=== PATIENT | male | born 1965 | race Caucasian/White ===

== ENCOUNTER 2016-09-08 12:26 | Inpatient (IN) | payer OTHER ==
[2016-09-08 12:38] VITALS: BMI 24.8
--- NOTE | 2016-09-08 15:43 | HP ---
COWS - Scale Resting Pulse: 0= [place] 80 or Below Sweatin=Flushed/Facial Moisture Restless Observation: 3= Extraneous Movement Pupil Size: 2= Moderately Dilated Bone or Joint Aches: 2= Severe Diffuse Aches Runny Nose/ Eye Tearin= Runny Nose/Eyes GI Upset > 30mins: 3= Vomiting/Diarrhea Tremor Observation: 2= Slight Tremor Visible Yawning Observation: 2= >3x During Session Anxiety or Irritability: 2=Irritable/Anxious Goose Flesh Skin: 0=Smooth Skin COWS Score: 20 CIWA Score - CIWA Score Nausea/Vomitin Muscle Tremors: 3 Anxiety: 3 Agitation: 3 Paroxysmal Sweats: 2 Orientation: 0-Oriented Tacttile Disturbances: 1-Very Mild Itch/Numbness Auditory Disturbances: 1-Very Mild Visual Disturbances: 1-Very Mild Sensitivity Headache: 2-Mild CIWA-Ar Total Score: 19 Admission ROS BHS - HPI Chief Complaint: i am using heroin and drinking a lot,need help to stop Allergies/Adverse Reactions: Allergies Allergy/AdvReac Type Severity Reaction Status Date / Time egg Allergy Severe Swelling Verified 09/08/16 14:23 NKDA Allergy Uncoded 09/08/16 14:24 History of Present Illness: this 50 years old male with heroin and alcohol dependence,seeking helpt to stop, last time treatment 06/30 [facility] nicotine dependence anxiety depression ptsd longest of sobriety 7 years Exam Limitations: No Limitations - Ebola screening Have you traveled outside of the country in the last 21 days: No Have you had contact with anyone from an Ebola affected area: No Have you been sick,other than usual withdrawal symptoms: No Do you have a fever: No - Review of Systems Constitutional: Chills, Diaphoresis, Loss of Appetite, Malaise, Night Sweats, Changes in sleep, Weakness, Unintentional Wgt. Loss EENT: reports: Tearing, Nose Congestion Respiratory: reports: No Symptoms reported Cardiac: reports: No Symptoms Reported GI: reports: Diarrhea, Nausea, Abdominal cramping : reports: No Symptoms Reported Musculoskeletal: reports: Back Pain, Muscle Pain, Joint Stiffness Integumentary: reports: Dryness Neuro: reports: Headache, Tremors Endocrine: reports: No Symptoms Reported Hematology: reports: No Symptoms Reported Psychiatric: reports: Anxious (ptsd), Depressed Patient History - Patient Medical History Hx Anemia: No Hx Asthma: No Hx Chronic Obstructive Pulmonary Disease (COPD): No Hx Cancer: No Hx Cardiac Disorders: No Hx Hypertension: No Hx Hypercholesterolemia: No Hx Pacemaker: No HX Cerebrovascular Accident: No Hx Seizures: No Hx Dementia: No Hx Diabetes: No Hx Gastrointestinal Disorders: No Hx Liver Disease: No Hx Genitourinary Disorders: No Hx Sexually Transmitted Disorders: No Hx Renal Disease (ESRD): No Hx Thyroid Disease: No Hx Human Immunodeficiency Virus (HIV): No (last 2014 negative) Hx Hepatitis C: No Hx Depression: Yes (anxiety) Hx Suicide Attempt: No Hx Bipolar Disorder: No Hx Schizophrenia: No Other Medical History: ptsd,insomnia,no suicidal,no homicidal - Patient Surgical History Past Surgical History: Yes Hx Neurologic Surgery: No Hx Cataract Extraction: No Hx Cardiac Surgery: No Hx Lung Surgery: No Hx Breast Surgery: No Hx Breast Biopsy: No Hx Abdominal Surgery: Yes (colon ca in 2012) Hx Appendectomy: No Hx Cholecystectomy: No Hx Genitourinary Surgery: No Hx Section: No Hx Orthopedic Surgery: Yes (fx, right arm in 1995) Anesthesia Reaction: No - PPD History Previous Implant?: Yes Documented Results: Negative w/o proof Implanted On Prior R Admission?: No PPD to be Administered?: Yes - Smoking Cessation Smoking history: Current every day smoker Have you smoked in the past 12 months: Yes Aproximately how many cigarettes per day: 4 Hx Chewing Tobacco Use: No Initiated information on smoking cessation: Yes 'Breaking Loose' booklet given: 09/09/16 - Substance & Tx. History Hx Alcohol Use: Yes Hx Substance Use: Yes Substance Use Type: Alcohol, Heroin Hx Substance Use Treatment: Yes ([facility] 2 months ago in [facility]/30) - Substances Abused Heroin Route: Inhalation Frequency: Daily Amount used: 2 bags Age of first use: 50 Date of Last Use: 09/07/16 Alcohol-vodka Route: Oral Frequency: Daily Amount used: 2 pts. Age of first use: 18 Date of Last Use: 09/08/16 Family Disease History - Family Disease History Family History: Denies Admission Physical Exam BHS - Vital Signs Vital Signs: Vital Signs - 24 hr 09/08/16 12:36 Temperature 97 F L Pulse Rate 79 Respiratory 20 Rate Blood Pressure 148/69 - Physical General Appearance: Yes: Moderate Distress, Tremorous, Irritable, Sweating, Anxious HEENTM: Yes: Normal ENT Inspection, JADE, Pharynx Normal Respiratory: Yes: Lungs Clear, Normal Breath Sounds, No Respiratory Distress Neck: Yes: Within Normal Limits Breast: Yes: Within Normal Limits Cardiology: Yes: Within Normal Limits, Regular Rhythm, Regular Rate, S1, S2 Abdominal: Yes: Within Normal Limits, Normal Bowel Sounds, Non Tender, Flat, Soft, Surgical Scar Genitourinary: Yes: Within Normal Limits Back: Yes: Muscle Spasm Musculoskeletal: Yes: full range of Motion, Back pain, Joint Stiffness, Muscle Pain Extremities: Yes: Tremors Neurological: Yes: network systems operator II-XII NML intact, Fully Oriented, Alert, Motor Strength 5/5 Integumentary: Yes: Dry Lymphatic: Yes: Within Normal Limits - Diagnostic (1) Opioid dependence with withdrawal Current Visit: Yes Status: Acute (2) Nicotine dependence Current Visit: Yes Status: Acute (3) Anxiety and depression Current Visit: Yes Status: Acute (4) PTSD (post-traumatic stress disorder) Current Visit: Yes Status: Acute (5) Weight loss Current Visit: Yes Status: Acute (6) Alcohol dependence with uncomplicated withdrawal Current Visit: Yes Status: Acute Cleared for Admission [facility] - Detox or Rehab [facility] Level of Care: Medically Managed Detox Regimen/Protocol: Methadone/Librium [facility] Breath Alcohol Content Breath Alcohol Content: 0 Urine Drug Screen - Results Drug Screen Negative: No Urine Drug Screen Results: SILVANA-Cocaine, OPI-Opiates
[2016-09-08] MEDS ORDERED: chlordiazePOXIDE HCL 25 MG CAPSULE PO PRN (15:56)
[2016-09-08] MEDS ORDERED: MAG HYDROX/AL HYDROX/SIMETH 30 ML UNIT-DOSE CUP PO PRN (15:57)
[2016-09-08] MEDS ORDERED: IBUPROFEN 400 MG TABLET (FP) PO PRN (15:57)
[2016-09-08] MEDS ORDERED: guaiFENesin/D-METHORPHAN HB 10 ML UNIT-DOSE CUPS PO PRN (15:57)
[2016-09-08] MEDS ORDERED: MAGNESIUM CITRATE 300 ML BOTTLE PO PRN (15:57)
[2016-09-08] MEDS ORDERED: ACETAMINOPHEN 325 MG TABLET (FP) PO PRN (15:57)
[2016-09-08] MEDS ORDERED: MENTHOL/PHENOL 1 EACH UD MM PRN (15:57)
[2016-09-08] MEDS ORDERED: MAGNESIUM HYDROX 2400MG/30ML ORAL SUSPENSION 30 ML CUP PO PRN (15:57)
[2016-09-08] MEDS ORDERED: hydrOXYzine PAMOATE 25 MG CAPSULE (FP) PO PRN (15:57)
[2016-09-08] MEDS ORDERED: P-EPHED 60MG/TRIPROLIDI 2.5MG TABLET PO PRN (15:57)
[2016-09-08] MEDS ORDERED: METHADONE HCL 10 MG TABLET (FOR DETOX USE ONLY) PO ONE ×2 (17:30→23:00)
[2016-09-08] MEDS: chlordiazePOXIDE HCL 25 MG CAPSULE PO SCH ×2 (18:18→22:07)
[2016-09-08] MEDS: NICOTINE 21 MG/24 HOURS TOPICAL PATCH TD SCH (18:23)
[2016-09-08 19:32] LABS: URINE APPEARANCE CLEAR; URINE BILIRUBIN NEGATIVE (NEGATIVE); URINE BLOOD NEGATIVE (NEGATIVE); URINE COLOR YELLOW; URINE GLUCOSE (UA) NEGATIVE (NEGATIVE); URINE KETONE 1+ (NEGATIVE); URINE LEUK ESTERASE NEGATIVE (NEGATIVE); URINE NITRITE NEGATIVE (NEGATIVE)
[2016-09-08 21:26] LABS: URINE PROTEIN 1+ (NEGATIVE)
[2016-09-08 21:36] LABS: URINE MUCUS MODERATE; URINE RBC <1 /hpf (0-3); URINE WBC 1 /hpf (3-5)
[2016-09-08] MEDS: cloNIDine HCL 0.1 MG TABLET PO SCH (22:07)
[2016-09-08] MEDS: THIAMINE HCL 100 MG TABLET (FP) PO SCH (22:07)
[2016-09-09] MEDS: chlordiazePOXIDE HCL 25 MG CAPSULE PO SCH ×4 (05:53→22:22)
--- NOTE | 2016-09-09 09:09 | CONSULT ---
[facility] Psychiatric Consult - Data Date of interview: 09/09/16 Admission source: [facility] Identifying data: This is 50 years old male with no psychiatric hospitalization history iontoxicated with: Alcohol, Heroin and Nicotine Substance Abuse History: - Smoking Cessation. Smoking history: Current every day smoker. Have you smoked in the past 12 months: Yes. Aproximately how many cigarettes per day: 4. Hx Chewing Tobacco Use: No. Initiated information on smoking cessation: Yes. - Substance & Tx. History. Hx Alcohol Use: Yes. Hx Substance Use: Yes. Substance Use Type: Alcohol, Heroin. Hx Substance Use Treatment: Yes ([facility] 2 [facility]30). - Substances Abused. Heroin. Route: Inhalation. Frequency: Daily. Amount used: 2 bags. Age of first use: 50. Date of Last Use: 09/07/16. Alcohol-vodka. Route: Oral. Frequency: Daily. Amount used: 2 pts. Age of first use: 18. Date of Last Use : 09/08/16 Medical History: Weight loss history Psychiatric History: Patient reports no psychiatric history, as per compiuter there is a history of PTSD and Anxiety and Depression. Reports no medications taking priuor to admission, denies suicidal hirtory Physical/Sexual Abuse/Trauma History: Denies Additional Comment: Observation. Detox Unit Care Protocol Mental Status Exam - Mental Status Exam Alert and Oriented to: Person Cognitive Function: Fair Patient Appearance: Unkempt Mood: Sad Affect: Flat Patient Behavior: Sedated Speech Pattern: Delayed Thought Process: Circumstantial Thought Disorder: Being Controlled Hallucinations: Denies Suicidal Ideation: Denies Homicidal Ideation: Denies Insight/Judgement: Fair Sleep: Difficulty falling asleep Appetite: Weight loss Muscle strength/Tone: Mild Hypotonicity Gait/Station: Shuffling Additional Comments: Observation. Detox Unit Care Protocol Psychiatric Findings - Problem List ([place] 1, 2,3) (1) Anxiety and depression Current Visit: Yes Status: Acute (2) Nicotine dependence Current Visit: Yes Status: Acute (3) Opioid dependence with withdrawal Current Visit: Yes Status: Acute (4) PTSD (post-traumatic stress disorder) Current Visit: Yes Status: Acute (5) Drug-induced mood disorder Current Visit: Yes Status: Acute - Initial Treatment Plan Initial Treatment Plan: Observation. Detox Unit Care Protocol
[2016-09-09] MEDS ORDERED: METHADONE HCL 10 MG TABLET (FOR DETOX USE ONLY) PO SCH (10:00)
[2016-09-09] MEDS: PRENATAL VITAMINS W/ FOLIC ACID TABLET (FP) PO SCH (10:04)
[2016-09-09] MEDS: CYCLOBENZAPRINE HCL 10 MG TABLET (FP) PO PRN ×2 (10:05→22:22)
[2016-09-09] MEDS: cloNIDine HCL 0.1 MG TABLET PO SCH ×2 (10:05→22:22)
[2016-09-09] MEDS: NICOTINE 21 MG/24 HOURS TOPICAL PATCH TD SCH (10:05)
[2016-09-09 10:26] LABS: ALBUMIN 3.4 g/dl (3.4-5.0); ANION GAP 9 (8-16); CALCIUM 9.6 mg/dL (8.5-10.1); CO2 33 mmol/L (21-32); CREATININE 0.9 mg/dL (0.7-1.3); GLUCOSE,RANDOM 156 mg/dL (74-106); SGOT/AST 57 U/L (15-37); SGPT/ALT 59 U/L (12-78)
[2016-09-09 10:27] LABS: ALK PHOS 141 U/L (45-117); TOT PROT 6.7 g/dl (6.4-8.2)
[2016-09-09 10:47] LABS: MCH 32.6 pg (25.7-33.7); MCHC 33.9 g/dl (32.0-35.9); MEAN CELL VOLUME 96.2 fl (80-96); MEAN PLT VOLUME 8.9 fl (7.5-11.1); PLATELET COUNT 275 K/MM3 (134-434); RDW 14.7 % (11.9-15.9); WHITE BLOOD COUNT 9.9 K/mm3 (4.0-10.0)
--- NOTE | 2016-09-09 11:59 | EKG ---
Test Reason : Blood Pressure : / mmHG Vent. Rate : 051 BPM Atrial Rate : 051 BPM P-R Int : 128 ms QRS Dur : 100 ms QT Int : 492 ms P-R-T Axes : 033 022 037 degrees QTc Int : 453 ms SINUS BRADYCARDIA OTHERWISE NORMAL ECG NO PREVIOUS ECGS AVAILABLE Confirmed by MILTON CLEARY MD ([id number]) on 09/09/2016 11:58:59 AM Referred By: Confirmed By:MILTON CLEARY MD
--- NOTE | 2016-09-09 13:04 | PN ---
[facility] CIWA - CIWA Score Nausea/Vomitin Muscle Tremors: 3 Anxiety: 3 Agitation: 2 Paroxysmal Sweats: 1-Minimal Palms Moist Orientation: 0-Oriented Tacttile Disturbances: 1-Very Mild Itch/Numbness Auditory Disturbances: 1-Very Mild Visual Disturbances: 1-Very Mild Sensitivity Headache: 2-Mild CIWA-Ar Total Score: 17 BHS COWS - Scale Resting Pulse: 0= [place] 80 or Below Sweatin= Chills/Flushing Restless Observation: 3= Extraneous Movement Pupil Size: 1= Pupils >than Normal Bone or Joint Aches: 2= Severe Diffuse Aches Runny Nose/ Eye Tearin= Runny Nose/Eyes GI Upset > 30mins: 2= Nausea/Diarrhea Tremor Observation of Outstretched Hands: 2= Slight Tremor Visible Yawning Observation: 2= >3x During Session Anxiety or Irritability: 2=Irritable/Anxious Goose Flesh Skin: 0=Smooth Skin COWS Score: 17 [facility] Progress Note (SOAP) Subjective: ALERT,IRRITABLE,ANXIOUS,INTERRUPTED SLEEP,PAIN IN THE BODY AND BACK Objective: 09/09/16 13:01 Vital Signs Temperature 97.0 F L 09/09/16 10:00 Pulse Rate 64 09/09/16 10:00 Respiratory Rate 18 09/09/16 10:00 Blood Pressure 124/77 09/09/16 10:00 O2 Sat by Pulse Oximetry (%) EKG SINUS BRADYCARDIA 51 NO CHEST PAIN,NO SOB,NO DIZZINESS Laboratory Last Values WBC 9.9 K/mm3 (4.0-10.0) 09/09/16 06:30 RBC 4.25 M/mm3 (4.00-5.60) 09/09/16 06:30 Hgb 13.9 GM/dL (11.7-16.9) 09/09/16 06:30 Hct 40.9 % (35.4-49) 09/09/16 06:30 MCV 96.2 fl (80-96) H 09/09/16 06:30 MCH 32.6 pg (25.7-33.7) 09/09/16 06:30 MCHC 33.9 g/dl (32.0-35.9) 09/09/16 06:30 RDW 14.7 % (11.9-15.9) 09/09/16 06:30 Plt Count 275 K/MM3 (134-434) 09/09/16 06:30 MPV 8.9 fl (7.5-11.1) 09/09/16 06:30 Sodium 140 mmol/L (136-145) 09/09/16 06:30 Potassium 3.7 mmol/L (3.5-5.1) 09/09/16 06:30 Chloride 98 mmol/L (98-107) 09/09/16 06:30 Carbon Dioxide 33 mmol/L (21-32) H 09/09/16 06:30 Anion Gap 9 (8-16) 09/09/16 06:30 BUN 9 mg/dL (7-18) 09/09/16 06:30 Creatinine 0.9 mg/dL (0.7-1.3) 09/09/16 06:30 Creat Clearance w eGFR > 60 (>60) 09/09/16 06:30 Random Glucose 156 mg/dL (74-106) H 09/09/16 06:30 Calcium 9.6 mg/dL (8.5-10.1) 09/09/16 06:30 Total Bilirubin 1.0 mg/dL (0.2-1.0) 09/09/16 06:30 AST 57 U/L (15-37) H 09/09/16 06:30 ALT 59 U/L (12-78) 09/09/16 06:30 Alkaline Phosphatase 141 U/L (45-117) H 09/09/16 06:30 Total Protein 6.7 g/dl (6.4-8.2) 09/09/16 06:30 Albumin 3.4 g/dl (3.4-5.0) 09/09/16 06:30 Urine Color Yellow 09/08/16 18:00 Urine Appearance Clear 09/08/16 18:00 Urine pH 7.0 (5.0-8.0) 09/08/16 18:00 Ur Specific [place] 1.020 (1.005-1.025) 09/08/16 18:00 Urine Protein 1+ (NEGATIVE) H 09/08/16 18:00 Urine Glucose (UA) Negative (NEGATIVE) 09/08/16 18:00 Urine Ketones 1+ (NEGATIVE) H 09/08/16 18:00 Urine Blood Negative (NEGATIVE) 09/08/16 18:00 Urine Nitrite Negative (NEGATIVE) 09/08/16 18:00 Urine Bilirubin Negative (NEGATIVE) 09/08/16 18:00 Urine Urobilinogen 2.0 mg/dL (0.2-1.0) 09/08/16 18:00 Ur Leukocyte Esterase Negative (NEGATIVE) 09/08/16 18:00 Urine RBC <1 /hpf (0-3) 09/08/16 18:00 Urine WBC 1 /hpf (3-5) 09/08/16 18:00 Urine Mucus Moderate 09/08/16 18:00 RPR Titer Nonreactive (NONREACTIVE) 09/09/16 06:30 09/09/16 13:03 Assessment: 09/09/16 13:02 WITHDRAWAL SYMPTOM 09/09/16 13:03 Plan: CONTINUE DETOX,FASTING GLUCOSE IN AM
[2016-09-09] MEDS: THIAMINE HCL 100 MG TABLET (FP) PO SCH (22:23)
[2016-09-10] MEDS: chlordiazePOXIDE HCL 25 MG CAPSULE PO SCH ×2 (05:36→10:50)
[2016-09-10] MEDS: METHADONE HCL 5 MG TABLET (FOR DETOX USE ONLY) PO SCH (10:50)
[2016-09-10] MEDS: cloNIDine HCL 0.1 MG TABLET PO SCH ×2 (10:51→22:05)
[2016-09-10] MEDS: NICOTINE 21 MG/24 HOURS TOPICAL PATCH TD SCH (10:51)
[2016-09-10] MEDS: PRENATAL VITAMINS W/ FOLIC ACID TABLET (FP) PO SCH (10:51)
--- NOTE | 2016-09-10 11:32 | PN ---
S COWS - Scale Resting Pulse: 1= [place] 81-100 Sweatin= Chills/Flushing Restless Observation: 3= Extraneous Movement Pupil Size: 1= Pupils >than Normal Bone or Joint Aches: 2= Severe Diffuse Aches Runny Nose/ Eye Tearin= Runny Nose/Eyes GI Upset > 30mins: 2= Nausea/Diarrhea Tremor Observation of Outstretched Hands: 2= Slight Tremor Visible Yawning Observation: 1= 1-2x During Session Anxiety or Irritability: 2=Irritable/Anxious Goose Flesh Skin: 0=Smooth Skin COWS Score: 17 S Progress Note (SOAP) Subjective: ALERT,IRRITABLE,ANXIOUS,INTERRUPTED SLEEP,PAIN IN THE BODY AND BACK,TREMOR Objective: 09/10/16 11:31 Vital Signs Temperature 97.2 F L 09/10/16 10:00 Pulse Rate 97 H 09/10/16 10:00 Respiratory Rate 18 09/10/16 10:00 Blood Pressure 112/68 09/10/16 10:00 O2 Sat by Pulse Oximetry (%) Laboratory Last Values WBC 9.9 K/mm3 (4.0-10.0) 09/09/16 06:30 RBC 4.25 M/mm3 (4.00-5.60) 09/09/16 06:30 Hgb 13.9 GM/dL (11.7-16.9) 09/09/16 06:30 Hct 40.9 % (35.4-49) 09/09/16 06:30 MCV 96.2 fl (80-96) H 09/09/16 06:30 MCH 32.6 pg (25.7-33.7) 09/09/16 06:30 MCHC 33.9 g/dl (32.0-35.9) 09/09/16 06:30 RDW 14.7 % (11.9-15.9) 09/09/16 06:30 Plt Count 275 K/MM3 (134-434) 09/09/16 06:30 MPV 8.9 fl (7.5-11.1) 09/09/16 06:30 Sodium 140 mmol/L (136-145) 09/09/16 06:30 Potassium 3.7 mmol/L (3.5-5.1) 09/09/16 06:30 Chloride 98 mmol/L (98-107) 09/09/16 06:30 Carbon Dioxide 33 mmol/L (21-32) H 09/09/16 06:30 Anion Gap 9 (8-16) 09/09/16 06:30 BUN 9 mg/dL (7-18) 09/09/16 06:30 Creatinine 0.9 mg/dL (0.7-1.3) 09/09/16 06:30 Creat Clearance w eGFR > 60 (>60) 09/09/16 06:30 Random Glucose 156 mg/dL (74-106) H 09/09/16 06:30 Calcium 9.6 mg/dL (8.5-10.1) 09/09/16 06:30 Total Bilirubin 1.0 mg/dL (0.2-1.0) 09/09/16 06:30 AST 57 U/L (15-37) H 09/09/16 06:30 ALT 59 U/L (12-78) 09/09/16 06:30 Alkaline Phosphatase 141 U/L (45-117) H 09/09/16 06:30 Total Protein 6.7 g/dl (6.4-8.2) 09/09/16 06:30 Albumin 3.4 g/dl (3.4-5.0) 09/09/16 06:30 Urine Color Yellow 09/08/16 18:00 Urine Appearance Clear 09/08/16 18:00 Urine pH 7.0 (5.0-8.0) 09/08/16 18:00 Ur Specific [place] 1.020 (1.005-1.025) 09/08/16 18:00 Urine Protein 1+ (NEGATIVE) H 09/08/16 18:00 Urine Glucose (UA) Negative (NEGATIVE) 09/08/16 18:00 Urine Ketones 1+ (NEGATIVE) H 09/08/16 18:00 Urine Blood Negative (NEGATIVE) 09/08/16 18:00 Urine Nitrite Negative (NEGATIVE) 09/08/16 18:00 Urine Bilirubin Negative (NEGATIVE) 09/08/16 18:00 Urine Urobilinogen 2.0 mg/dL (0.2-1.0) 09/08/16 18:00 Ur Leukocyte Esterase Negative (NEGATIVE) 09/08/16 18:00 Urine RBC <1 /hpf (0-3) 09/08/16 18:00 Urine WBC 1 /hpf (3-5) 09/08/16 18:00 Urine Mucus Moderate 09/08/16 18:00 RPR Titer Nonreactive (NONREACTIVE) 09/09/16 06:30 Assessment: 09/10/16 11:32 WITHDRAWAL SYMPTOM Plan: CONTINUE DETOX
[2016-09-10] MEDS ORDERED: TRIMETHOBENZAMIDE HCL 200MG/2ML INJ IM PRN (16:42)
[2016-09-10] MEDS: chlordiazePOXIDE 5 MG CAPSULE PO SCH ×2 (18:38→22:05)
[2016-09-10] MEDS: LOPERAMIDE HCL 2 MG CAPSULE PO PRN (19:52)
[2016-09-10] MEDS: diphenhydrAMINE HCL 50 MG CAPSULE PO PRN (22:05)
[2016-09-10] MEDS: THIAMINE HCL 100 MG TABLET (FP) PO SCH (22:05)
[2016-09-11] MEDS: LOPERAMIDE HCL 2 MG CAPSULE PO PRN ×3 (05:10→23:36)
[2016-09-11] MEDS: chlordiazePOXIDE 5 MG CAPSULE PO SCH ×2 (06:48→10:45)
[2016-09-11] MEDS: PRENATAL VITAMINS W/ FOLIC ACID TABLET (FP) PO SCH (10:45)
[2016-09-11] MEDS: cloNIDine HCL 0.1 MG TABLET PO SCH ×2 (10:45→22:32)
[2016-09-11] MEDS: METHADONE HCL 5 MG TABLET (FOR DETOX USE ONLY) PO SCH (10:46)
[2016-09-11] MEDS ORDERED: DIPHENOXYLATE 2.5/ATROPINE.025 1 COMBO TABLET PO ONE (14:14)
--- NOTE | 2016-09-11 14:18 | PN ---
BHS Progress Note (SOAP) Subjective: Pt. c/o constant diarrhea,sweating,interrupted sleep,restless Objective: 09/11/16 14:17 Vital Signs - 8 hr 09/11/16 09/11/16 09:48 14:12 Temperature 97.9 F 97.2 F L Pulse Rate 68 70 Respiratory 18 18 Rate Blood Pressure 108/67 112/66 Laboratory Last Values WBC 9.9 K/mm3 (4.0-10.0) 09/09/16 06:30 RBC 4.25 M/mm3 (4.00-5.60) 09/09/16 06:30 Hgb 13.9 GM/dL (11.7-16.9) 09/09/16 06:30 Hct 40.9 % (35.4-49) 09/09/16 06:30 MCV 96.2 fl (80-96) H 09/09/16 06:30 MCH 32.6 pg (25.7-33.7) 09/09/16 06:30 MCHC 33.9 g/dl (32.0-35.9) 09/09/16 06:30 RDW 14.7 % (11.9-15.9) 09/09/16 06:30 Plt Count 275 K/MM3 (134-434) 09/09/16 06:30 MPV 8.9 fl (7.5-11.1) 09/09/16 06:30 Sodium 140 mmol/L (136-145) 09/09/16 06:30 Potassium 3.7 mmol/L (3.5-5.1) 09/09/16 06:30 Chloride 98 mmol/L (98-107) 09/09/16 06:30 Carbon Dioxide 33 mmol/L (21-32) H 09/09/16 06:30 Anion Gap 9 (8-16) 09/09/16 06:30 BUN 9 mg/dL (7-18) 09/09/16 06:30 Creatinine 0.9 mg/dL (0.7-1.3) 09/09/16 06:30 Creat Clearance w eGFR > 60 (>60) 09/09/16 06:30 Random Glucose 156 mg/dL (74-106) H 09/09/16 06:30 Calcium 9.6 mg/dL (8.5-10.1) 09/09/16 06:30 Total Bilirubin 1.0 mg/dL (0.2-1.0) 09/09/16 06:30 AST 57 U/L (15-37) H 09/09/16 06:30 ALT 59 U/L (12-78) 09/09/16 06:30 Alkaline Phosphatase 141 U/L (45-117) H 09/09/16 06:30 Total Protein 6.7 g/dl (6.4-8.2) 09/09/16 06:30 Albumin 3.4 g/dl (3.4-5.0) 09/09/16 06:30 Urine Color Yellow 09/08/16 18:00 Urine Appearance Clear 09/08/16 18:00 Urine pH 7.0 (5.0-8.0) 09/08/16 18:00 Ur Specific [place] 1.020 (1.005-1.025) 09/08/16 18:00 Urine Protein 1+ (NEGATIVE) H 09/08/16 18:00 Urine Glucose (UA) Negative (NEGATIVE) 09/08/16 18:00 Urine Ketones 1+ (NEGATIVE) H 09/08/16 18:00 Urine Blood Negative (NEGATIVE) 09/08/16 18:00 Urine Nitrite Negative (NEGATIVE) 09/08/16 18:00 Urine Bilirubin Negative (NEGATIVE) 09/08/16 18:00 Urine Urobilinogen 2.0 mg/dL (0.2-1.0) 09/08/16 18:00 Ur Leukocyte Esterase Negative (NEGATIVE) 09/08/16 18:00 Urine RBC <1 /hpf (0-3) 09/08/16 18:00 Urine WBC 1 /hpf (3-5) 09/08/16 18:00 Urine Mucus Moderate 09/08/16 18:00 RPR Titer Nonreactive (NONREACTIVE) 09/09/16 06:30 labs noted Assessment: 09/11/16 14:17 Withdrawal sx. Plan: Continue detox
[2016-09-11] MEDS: chlordiazePOXIDE HCL 10 MG CAPSULE PO SCH ×2 (17:38→22:32)
[2016-09-11] MEDS: diphenhydrAMINE HCL 50 MG CAPSULE PO PRN (22:32)
[2016-09-11] MEDS: THIAMINE HCL 100 MG TABLET (FP) PO SCH (22:32)
[2016-09-12] MEDS: chlordiazePOXIDE HCL 10 MG CAPSULE PO SCH ×2 (06:10→11:02)
[2016-09-12] MEDS ORDERED: METHADONE HCL 10 MG TABLET (FOR DETOX USE ONLY) PO SCH (10:00)
[2016-09-12] MEDS: NICOTINE 21 MG/24 HOURS TOPICAL PATCH TD SCH ×2 (11:00→11:05)
[2016-09-12] MEDS: PRENATAL VITAMINS W/ FOLIC ACID TABLET (FP) PO SCH (11:02)
[2016-09-12] MEDS: cloNIDine HCL 0.1 MG TABLET PO SCH ×2 (11:02→22:15)
--- NOTE | 2016-09-12 14:52 | PN ---
BHS Progress Note (SOAP) Subjective: Sweating,interrupted sleep,restless Objective: 09/12/16 14:50 Vital Signs - 8 hr 09/12/16 09/12/16 10:00 13:47 Temperature 98.2 F 98.1 F Pulse Rate 76 70 Respiratory 18 18 Rate Blood Pressure 105/72 116/75 Laboratory Last Values WBC 9.9 K/mm3 (4.0-10.0) 09/09/16 06:30 RBC 4.25 M/mm3 (4.00-5.60) 09/09/16 06:30 Hgb 13.9 GM/dL (11.7-16.9) 09/09/16 06:30 Hct 40.9 % (35.4-49) 09/09/16 06:30 MCV 96.2 fl (80-96) H 09/09/16 06:30 MCH 32.6 pg (25.7-33.7) 09/09/16 06:30 MCHC 33.9 g/dl (32.0-35.9) 09/09/16 06:30 RDW 14.7 % (11.9-15.9) 09/09/16 06:30 Plt Count 275 K/MM3 (134-434) 09/09/16 06:30 MPV 8.9 fl (7.5-11.1) 09/09/16 06:30 Sodium 140 mmol/L (136-145) 09/09/16 06:30 Potassium 3.7 mmol/L (3.5-5.1) 09/09/16 06:30 Chloride 98 mmol/L (98-107) 09/09/16 06:30 Carbon Dioxide 33 mmol/L (21-32) H 09/09/16 06:30 Anion Gap 9 (8-16) 09/09/16 06:30 BUN 9 mg/dL (7-18) 09/09/16 06:30 Creatinine 0.9 mg/dL (0.7-1.3) 09/09/16 06:30 Creat Clearance w eGFR > 60 (>60) 09/09/16 06:30 Random Glucose 156 mg/dL (74-106) H 09/09/16 06:30 Calcium 9.6 mg/dL (8.5-10.1) 09/09/16 06:30 Total Bilirubin 1.0 mg/dL (0.2-1.0) 09/09/16 06:30 AST 57 U/L (15-37) H 09/09/16 06:30 ALT 59 U/L (12-78) 09/09/16 06:30 Alkaline Phosphatase 141 U/L (45-117) H 09/09/16 06:30 Total Protein 6.7 g/dl (6.4-8.2) 09/09/16 06:30 Albumin 3.4 g/dl (3.4-5.0) 09/09/16 06:30 Urine Color Yellow 09/08/16 18:00 Urine Appearance Clear 09/08/16 18:00 Urine pH 7.0 (5.0-8.0) 09/08/16 18:00 Ur Specific [place] 1.020 (1.005-1.025) 09/08/16 18:00 Urine Protein 1+ (NEGATIVE) H 09/08/16 18:00 Urine Glucose (UA) Negative (NEGATIVE) 09/08/16 18:00 Urine Ketones 1+ (NEGATIVE) H 09/08/16 18:00 Urine Blood Negative (NEGATIVE) 09/08/16 18:00 Urine Nitrite Negative (NEGATIVE) 09/08/16 18:00 Urine Bilirubin Negative (NEGATIVE) 09/08/16 18:00 Urine Urobilinogen 2.0 mg/dL (0.2-1.0) 09/08/16 18:00 Ur Leukocyte Esterase Negative (NEGATIVE) 09/08/16 18:00 Urine RBC <1 /hpf (0-3) 09/08/16 18:00 Urine WBC 1 /hpf (3-5) 09/08/16 18:00 Urine Mucus Moderate 09/08/16 18:00 RPR Titer Nonreactive (NONREACTIVE) 09/09/16 06:30 labs noted Assessment: 09/12/16 14:51 Withdrawal sx. Plan: Continue detox
[2016-09-12] MEDS: DIPHENOXYLATE 2.5/ATROPINE.025 1 COMBO TABLET PO PRN ×2 (16:36→22:16)
[2016-09-12] MEDS: THIAMINE HCL 100 MG TABLET (FP) PO SCH (22:15)
[2016-09-12] MEDS: CYCLOBENZAPRINE HCL 10 MG TABLET (FP) PO PRN (22:16)
[2016-09-12] MEDS: diphenhydrAMINE HCL 50 MG CAPSULE PO PRN (22:17)
[2016-09-13] MEDS ORDERED: METHADONE HCL 5 MG TABLET (FOR DETOX USE ONLY) PO SCH (06:00)
--- NOTE | 2016-09-13 08:39 | DS ---
[facility] Detox Discharge Summary Admission Date: 09/08/16 Discharge Date: 09/13/16 - History Present History: Alcohol Dependence, Opioid Dependence Additional Comments: FOLLOW UP WITH AFTER CARE PROGRAM ARRANGEMENT Pertinent Past History: WEIGHT LOSS NICOTINE DEPENDENCE ANXIETY AND DEPRESSION PTSD - Physical Exam Results Vital Signs: Vital Signs Temperature 97.9 F 09/13/16 05:58 Pulse Rate 90 09/13/16 05:58 Respiratory Rate 20 09/13/16 05:58 Blood Pressure 98/72 09/13/16 05:58 O2 Sat by Pulse Oximetry (%) Pertinent Admission Physical Exam Findings: WITHDRAWAL SYMPTOM - Treatment Hospital Course: Detox Protocol Followed, Detoxed Safely, Responded well, Discharged Condition Good Patient has Accepted a Rehab Referral to: DECLINED - Medication Discharge Medications: Ambulatory Orders NK [No Known Home Medication] 09/08/16 - Diagnosis (1) Opioid dependence with withdrawal Current Visit: Yes Status: Acute (2) Nicotine dependence Current Visit: Yes Status: Acute (3) Anxiety and depression Current Visit: Yes Status: Acute (4) PTSD (post-traumatic stress disorder) Current Visit: Yes Status: Acute (5) Weight loss Current Visit: Yes Status: Acute (6) Alcohol dependence with uncomplicated withdrawal Current Visit: Yes Status: Acute - AMA Did Patient Leave Against Medical Advice: No
[2016-09-13 09:54] VITALS: BP 114/71; PULSE 78; TEMP 97.3
== END 2016-09-13 09:46 | disposition home or self-care (01) | DRG 773 ==
LOC: YASAS 12:26 → Y6N 16:33
PROVIDERS: ADMIT Internal Medicine; ATTEND Internal Medicine
PROC: HZ2ZZZZ Detoxification Services for Substance Abuse Treatment (ICD-10-PCS; principal; 2016-09-08)
DX: F11.23 Opioid dependence with withdrawal (principal); F10.230 Alcohol dependence with withdrawal, uncomplicated; F17.210 Nicotine dependence, cigarettes, uncomplicated; F41.8 Other specified anxiety disorders; F43.10 Post-traumatic stress disorder, unspecified; F19.24 Other psychoactive substance dependence with psychoactive substance-induced mood disorder; R00.1 Bradycardia, unspecified; Z85.038 Personal history of other malignant neoplasm of large intestine; Z87.898 Personal history of other specified conditions; Z91.012 Allergy to eggs
CPT/HCPCS: 36415; 80053; 81003; 81015; 85027; 86593; 93005; 93010

== ENCOUNTER 2017-02-18 18:46 | Inpatient (IN) | payer OTHER ==
[2017-02-18 19:05] VITALS: BMI 24.0
--- NOTE | 2017-02-18 20:15 | HP ---
CIWA Score - CIWA Score Nausea/Vomitin (vomiting x 3) Muscle Tremors: 4-Moderate,w/Arms Extend Anxiety: 4-Mod. Anxious/Guarded Agitation: 1-Slight > Activity Paroxysmal Sweats: 3 Orientation: 1-Uncertain about Date Tacttile Disturbances: 0-None Auditory Disturbances: 0-None Visual Disturbances: 0-None Headache: 0-None Present CIWA-Ar Total Score: 16 Admission ROS S - HPI Chief Complaint: Alcohol withdrawal symptoms Allergies/Adverse Reactions: Allergies Allergy/AdvReac Type Severity Reaction Status Date / Time egg Allergy Severe Swelling Verified 09/08/16 14:23 NKDA Allergy Uncoded 09/08/16 14:24 History of Present Illness: 51 years old male with a long history of alcohol dependence is admitted to detox. Patient has been previous detox, [facility]. He reports 7 years of sobriety. He has medical history of anxiety, seizure and colon cancer. Patient has a history of suicide attempt in 2013 and denies suicidal ideation at this time. - Ebola screening Have you traveled outside of the country in the last 21 days: No (N) Have you had contact with anyone from an Ebola affected area: No Have you been sick,other than usual withdrawal symptoms: No Do you have a fever: No - Review of Systems Constitutional: Chills, Loss of Appetite, Malaise, Night Sweats, Changes in sleep, Weakness EENT: reports: No Symptoms Reported Respiratory: reports: No Symptoms reported, Productive cough GI: reports: Diarrhea (x 3), Nausea, Poor Fluid Intake, Abdominal cramping : reports: No Symptoms Reported Musculoskeletal: reports: Muscle Weakness Integumentary: reports: Dryness, Flushing Neuro: reports: Tremors, Weakness Endocrine: reports: No Symptoms Reported Hematology: reports: No Symptoms Reported Psychiatric: reports: Anxious, Depressed Other Systems: Reviewed and Negative Patient History - Patient Medical History Hx Anemia: No Hx Asthma: No Hx Chronic Obstructive Pulmonary Disease (COPD): No Hx Cancer: Yes (Colon cancer) Hx Cardiac Disorders: No Hx Congestive Heart Failure: No Hx Hypertension: No Hx Hypercholesterolemia: No Hx Pacemaker: No HX Cerebrovascular Accident: No Hx Seizures: Yes (2016) Hx Dementia: No Hx Diabetes: No Hx Gastrointestinal Disorders: No Hx Liver Disease: No Hx Genitourinary Disorders: No Hx Sexually Transmitted Disorders: No Hx Renal Disease (ESRD): No Hx Thyroid Disease: No Hx Human Immunodeficiency Virus (HIV): No (Negative 2016) Hx Hepatitis C: No Hx Depression: Yes (anxiety) Hx Suicide Attempt: Yes (2017. Denies suicidal ideation at this time) Hx Bipolar Disorder: No Hx Schizophrenia: No - Patient Surgical History Past Surgical History: Yes Hx Neurologic Surgery: No Hx Cataract Extraction: No Hx Cardiac Surgery: No Hx Lung Surgery: No Hx Abdominal Surgery: Yes (Colon ca in 2012) Hx Appendectomy: No Hx Cholecystectomy: No Hx Genitourinary Surgery: No Hx Section: No Hx Orthopedic Surgery: Yes (fx, right arm in 1995) Anesthesia Reaction: No - PPD History Previous Implant?: Yes Documented Results: Negative w/proof Implanted On Prior [facility] Admission?: Yes Date: 09/10/16 PPD to be Administered?: No - Reproductive History Patient is a Female of Child Bearing Age (11 -55 yrs old): No (Male) - Smoking Cessation Smoking history: Current every day smoker Have you smoked in the past 12 months: Yes Aproximately how many cigarettes per day: 5 Hx Chewing Tobacco Use: No Initiated information on smoking cessation: Yes 'Breaking Loose' booklet given: 02/18/17 - Substance & Tx. History Hx Alcohol Use: Yes (Vodka) Hx Substance Use: No Substance Use Type: Alcohol Hx Substance Use Treatment: Yes ([facility] 08/2016) - Substances Abused Alcohol Route: Oral Frequency: Daily Amount used: VODKA- 3 PINTS Age of first use: 18 Date of Last Use: 02/18/17 Family Disease History - Family Disease History Family Disease History: Other: Father (Alcoholic - ) Admission Physical Exam [facility] - Vital Signs Vital Signs: Vital Signs - 24 hr 02/18/17 19:04 Temperature 97.2 F L Pulse Rate 95 H Respiratory 18 Rate Blood Pressure 135/74 - Physical General Appearance: Yes: Tremorous, Irritable, Sweating, Anxious HEENTM: Yes: EOMI, Normal Voice, JADE Respiratory: Yes: Lungs Clear, Normal Breath Sounds, No Respiratory Distress Neck: Yes: Supple Breast: Yes: Breast Exam Deferred Cardiology: Yes: Regular Rhythm, Regular Rate, Tachycardia Abdominal: Yes: Normal Bowel Sounds, Soft Genitourinary: Yes: Within Normal Limits Back: Yes: Normal Inspection Extremities: Yes: Tremors Neurological: Yes: Alert, Normal Mood/Affect, Normal Response Integumentary: Yes: Dry, Diaphoresis Lymphatic: Yes: Within Normal Limits - Diagnostic (1) Seizure Current Visit: Yes Status: Chronic (2) Alcohol dependence with uncomplicated withdrawal Current Visit: No Status: Chronic (3) Anxiety and depression Current Visit: No Status: Chronic (4) Nicotine dependence Current Visit: No Status: Chronic Cleared for Admission [facility] - Detox or Rehab [facility] Level of Care: Medically Managed Detox Regimen/Protocol: Librium S Breath Alcohol Content Breath Alcohol Content: 0.387 Urine Drug Screen - Results Drug Screen Negative: Yes
[2017-02-18] MEDS ORDERED: MENTHOL/PHENOL 1 EACH UD MM PRN (20:28)
[2017-02-18] MEDS ORDERED: chlordiazePOXIDE HCL 25 MG CAPSULE PO PRN (20:28)
[2017-02-18] MEDS ORDERED: LOPERAMIDE HCL 2 MG CAPSULE PO PRN (20:28)
[2017-02-18] MEDS ORDERED: MAGNESIUM CITRATE 300 ML BOTTLE PO PRN (20:28)
[2017-02-18] MEDS ORDERED: P-EPHED 60MG/TRIPROLIDI 2.5MG TABLET PO PRN (20:28)
[2017-02-18] MEDS ORDERED: NICOTINE POLACRILEX 2 MG GUM BUC PRN (20:28)
[2017-02-18] MEDS ORDERED: IBUPROFEN 400 MG TABLET (FP) PO PRN (20:28)
[2017-02-18] MEDS ORDERED: guaiFENesin/D-METHORPHAN HB 10 ML UNIT-DOSE CUPS PO PRN (20:28)
[2017-02-18] MEDS ORDERED: MAG HYDROX/AL HYDROX/SIMETH 30 ML UNIT-DOSE CUP PO PRN (20:28)
[2017-02-18] MEDS ORDERED: ACETAMINOPHEN 325 MG TABLET (FP) PO PRN (20:28)
[2017-02-18] MEDS ORDERED: MAGNESIUM HYDROX 2400MG/30ML ORAL SUSPENSION 30 ML CUP PO PRN (20:28)
[2017-02-18] MEDS: THIAMINE HCL 100 MG TABLET (FP) PO SCH (22:54)
[2017-02-18] MEDS: chlordiazePOXIDE HCL 25 MG CAPSULE PO SCH (22:54)
[2017-02-18 23:26] LABS: URINE APPEARANCE SLCLOUDY; URINE BILIRUBIN NEGATIVE (NEGATIVE); URINE BLOOD NEGATIVE (NEGATIVE); URINE COLOR LTYELLOW; URINE GLUCOSE (UA) NEGATIVE (NEGATIVE); URINE KETONE NEGATIVE (NEGATIVE); URINE LEUK ESTERASE NEGATIVE (NEGATIVE); URINE NITRITE NEGATIVE (NEGATIVE); URINE PROTEIN NEGATIVE (NEGATIVE); URINE UROBILINOGEN NEGATIVE mg/dL (0.2-1.0)
[2017-02-19] MEDS: chlordiazePOXIDE HCL 25 MG CAPSULE PO SCH ×4 (05:15→23:38)
--- NOTE | 2017-02-19 09:59 | PN ---
S CIWA - CIWA Score Nausea/Vomitin Muscle Tremors: 3 Anxiety: 3 Agitation: 2 Paroxysmal Sweats: 1-Minimal Palms Moist Orientation: 0-Oriented Tacttile Disturbances: 1-Very Mild Itch/Numbness Auditory Disturbances: 1-Very Mild Visual Disturbances: 0-None Headache: 2-Mild CIWA-Ar Total Score: 16 [facility] Progress Note (SOAP) Subjective: ALERT,IRRITABLE,ANXIOUS,INTERRUPTED SLEEP,TREMOR Objective: 02/19/17 09:57 Vital Signs Temperature 98.2 F 02/19/17 06:06 Pulse Rate 66 02/19/17 06:06 Respiratory Rate 16 02/19/17 06:06 Blood Pressure 139/75 02/19/17 06:06 O2 Sat by Pulse Oximetry (%) EKG NSR 02/19/17 09:58 Laboratory Last Values Urine Color Ltyellow 02/18/17 22:22 Urine Appearance Slcloudy 02/18/17 22:22 Urine pH 8.0 (5.0-8.0) 02/18/17 22:22 Ur Specific [place] 1.008 (1.001-1.035) 02/18/17 22:22 Urine Protein Negative (NEGATIVE) 02/18/17 22:22 Urine Glucose (UA) Negative (NEGATIVE) 02/18/17 22:22 Urine Ketones Negative (NEGATIVE) 02/18/17 22:22 Urine Blood Negative (NEGATIVE) 02/18/17 22:22 Urine Nitrite Negative (NEGATIVE) 02/18/17 22:22 Urine Bilirubin Negative (NEGATIVE) 02/18/17 22:22 Urine Urobilinogen Negative mg/dL (0.2-1.0) 02/18/17 22:22 Ur Leukocyte Esterase Negative (NEGATIVE) 02/18/17 22:22 LABS PENDING Assessment: 02/19/17 09:58 WITHDRAWAL SYMPTOM Plan: CONTINUE DETOX
[2017-02-19] MEDS: PRENATAL VITAMINS W/ FOLIC ACID TABLET (FP) PO SCH (10:19)
[2017-02-19] MEDS: NICOTINE 14 MG/24 HOURS TOPICAL PATCH TD SCH (10:20)
[2017-02-19 11:01] LABS: ALBUMIN 2.9 g/dl (3.4-5.0); ANION GAP 6 (8-16); BLOOD UREA NITROGEN 11 mg/dL (7-18); CALCIUM 8.3 mg/dL (8.5-10.1); CHLORIDE 105 mmol/L (98-107); CO2 32 mmol/L (21-32); CREATININE 0.8 mg/dL (0.7-1.3); GLUCOSE,RANDOM 86 mg/dL (74-106); POTASSIUM 3.7 mmol/L (3.5-5.1); SGOT/AST 135 U/L (15-37); SGPT/ALT 80 U/L (12-78); SODIUM 143 mmol/L (136-145)
[2017-02-19 11:02] LABS: ALK PHOS 164 U/L (45-117); BILIRUBIN,TOTAL 0.5 mg/dL (0.2-1.0); TOT PROT 6.4 g/dl (6.4-8.2)
[2017-02-19 11:12] LABS: HEMATOCRIT 35.6 % (35.4-49); HEMOGLOBIN 11.8 GM/dL (11.7-16.9); MCH 33.3 pg (25.7-33.7); MCHC 33.3 g/dl (32.0-35.9); MEAN CELL VOLUME 99.9 fl (80-96); MEAN PLT VOLUME 8.3 fl (7.5-11.1); PLATELET COUNT 332 K/MM3 (134-434); RBC 3.56 M/mm3 (4.00-5.60); RDW 13.2 % (11.9-15.9)
--- NOTE | 2017-02-19 13:39 | EKG ---
Test Reason : Blood Pressure : / mmHG Vent. Rate : 075 BPM Atrial Rate : 075 BPM P-R Int : 148 ms QRS Dur : 088 ms QT Int : 422 ms P-R-T Axes : 017 -05 015 degrees QTc Int : 471 ms NORMAL SINUS RHYTHM POOR R WAVE PROGRESSION Confirmed by CRYSTAL CORDOVA MD ([id number]) on 02/19/2017 1:38:37 PM Referred By: Confirmed By:CRYSTAL CORDOVA MD
--- NOTE | 2017-02-19 13:49 | CONSULT ---
[facility] Psychiatric Consult - Data Date of interview: 02/19/17 Admission source: [facility] Identifying data: Readmission to [facility] for this 51 y/o male seeking detox treatment on for alcohol dependence.Patient is single without children,homeless,unemployed and supported on SSI benefits. Substance Abuse History: Confirmed by patient.See details in current [facility] report : Smoking history: Current every day smoker. Have you smoked in the past 12 months: Yes. Aproximately how many cigarettes per day: 5. Hx Chewing Tobacco Use: No. Initiated information on smoking cessation: Yes. 'Breaking Loose' booklet given: 02/18/17. - Substance & Tx. History. Hx Alcohol Use: Yes (Vodka ). Hx Substance Use: No. Substance Use Type: Alcohol. Hx Substance Use Treatment: Yes ([facility] 08/2016). - Substances Abused. Alcohol. Route: Oral. Frequency: Daily. Amount used: VODKA- 3 PINTS. Age of first use: 18. Date of Last Use: 02/18/17 Medical History: History of treatment for cancer of colon and orthosurgery for fracture of right arm (1995). Psychiatric History: Patient admits to a history of three psychiatric hospitalizations (no recall of names of institutions).Diagnosed with MDD.Mr Naranjo indicates that he " used to be " on prozac.Not taken for more than a year.No recent history of OPD care.Patient denies history of suicide attempts. Physical/Sexual Abuse/Trauma History: Patient denies. Additional Comment: Drug Screen is negative. Mental Status Exam - Mental Status Exam Alert and Oriented to: Time, Place, Person Cognitive Function: Good Patient Appearance: Well Groomed Mood: Withdrawn, Anxious, Hopeful Affect: Mood Congruent, Constricted Patient Behavior: Fatigued, Appropriate, Cooperative Speech Pattern: Clear, Appropriate Voice Loudness: Normal Thought Process: Intact, Goal Oriented Thought Disorder: Not Present Hallucinations: Denies Suicidal Ideation: Denies Homicidal Ideation: Denies Insight/Judgement: Poor Sleep: Poorly, Difficulty falling asleep Appetite: Good Muscle strength/Tone: Normal Gait/Station: Normal Psychiatric Findings - Problem List ([place] 1, 2,3) (1) Alcohol dependence with uncomplicated withdrawal Current Visit: Yes Status: Chronic (2) Nicotine dependence Current Visit: Yes Status: Acute (3) Alcohol-induced mood disorder Current Visit: Yes Status: Acute (4) Insomnia Current Visit: Yes Status: Acute - Initial Treatment Plan Initial Treatment Plan: Old records revisited.Psychoeducation and support.Sleep hygiene discussed.Detoxification in progress.Ambien 5 mg po hs prn.Ordered.Side effects/benefits reviewed with patient.Consent (verbal) given.SSRI suggested : patient declined.Observation.OPD care recommended (following discharge from [facility]).
[2017-02-19] MEDS ORDERED: ZOLPIDEM TARTRATE 5 MG TABLET PO PRN (22:00)
[2017-02-19] MEDS: THIAMINE HCL 100 MG TABLET (FP) PO SCH (23:38)
[2017-02-20] MEDS: chlordiazePOXIDE HCL 25 MG CAPSULE PO SCH ×3 (05:25→17:57)
--- NOTE | 2017-02-20 10:04 | PN ---
[facility] CIWA - CIWA Score Nausea/Vomitin-Mild Nausea/No Vomiting Muscle Tremors: 3 Anxiety: 3 Agitation: 3 Paroxysmal Sweats: 1-Minimal Palms Moist Orientation: 0-Oriented Tacttile Disturbances: 0-None Auditory Disturbances: 0-None Visual Disturbances: 0-None Headache: 0-None Present CIWA-Ar Total Score: 11 S Progress Note (SOAP) Subjective: mild tremor able to tolerate food and fluid restlessness sweat Objective: 02/20/17 10:03 Vital Signs Temperature 97 F L 02/20/17 06:26 Pulse Rate 78 02/20/17 06:26 Respiratory Rate 18 02/20/17 06:26 Blood Pressure 131/90 02/20/17 06:26 O2 Sat by Pulse Oximetry (%) Laboratory Last Values WBC 4.0 K/mm3 (4.0-10.0) D 02/19/17 08:00 RBC 3.56 M/mm3 (4.00-5.60) L 02/19/17 08:00 Hgb 11.8 GM/dL (11.7-16.9) D 02/19/17 08:00 Hct 35.6 % (35.4-49) 02/19/17 08:00 MCV 99.9 fl (80-96) H 02/19/17 08:00 MCH 33.3 pg (25.7-33.7) 02/19/17 08:00 MCHC 33.3 g/dl (32.0-35.9) 02/19/17 08:00 RDW 13.2 % (11.9-15.9) D 02/19/17 08:00 Plt Count 332 K/MM3 (134-434) D 02/19/17 08:00 MPV 8.3 fl (7.5-11.1) 02/19/17 08:00 Sodium 143 mmol/L (136-145) 02/19/17 08:00 Potassium 3.7 mmol/L (3.5-5.1) 02/19/17 08:00 Chloride 105 mmol/L (98-107) 02/19/17 08:00 Carbon Dioxide 32 mmol/L (21-32) 02/19/17 08:00 Anion Gap 6 (8-16) L 02/19/17 08:00 BUN 11 mg/dL (7-18) D 02/19/17 08:00 Creatinine 0.8 mg/dL (0.7-1.3) 02/19/17 08:00 Creat Clearance w eGFR > 60 (>60) 02/19/17 08:00 Random Glucose 86 mg/dL (74-106) D 02/19/17 08:00 Calcium 8.3 mg/dL (8.5-10.1) L 02/19/17 08:00 Total Bilirubin 0.5 mg/dL (0.2-1.0) D 02/19/17 08:00 AST 135 U/L (15-37) H D 02/19/17 08:00 ALT 80 U/L (12-78) H D 02/19/17 08:00 Alkaline Phosphatase 164 U/L (45-117) H 02/19/17 08:00 Total Protein 6.4 g/dl (6.4-8.2) 02/19/17 08:00 Albumin 2.9 g/dl (3.4-5.0) L 02/19/17 08:00 Urine Color Ltyellow 02/18/17 22:22 Urine Appearance Slcloudy 02/18/17 22:22 Urine pH 8.0 (5.0-8.0) 02/18/17 22:22 Ur Specific [place] 1.008 (1.001-1.035) 02/18/17 22:22 Urine Protein Negative (NEGATIVE) 02/18/17 22:22 Urine Glucose (UA) Negative (NEGATIVE) 02/18/17 22:22 Urine Ketones Negative (NEGATIVE) 02/18/17 22:22 Urine Blood Negative (NEGATIVE) 02/18/17 22:22 Urine Nitrite Negative (NEGATIVE) 02/18/17 22:22 Urine Bilirubin Negative (NEGATIVE) 02/18/17 22:22 Urine Urobilinogen Negative mg/dL (0.2-1.0) 02/18/17 22:22 Ur Leukocyte Esterase Negative (NEGATIVE) 02/18/17 22:22 RPR Titer Nonreactive (NONREACTIVE) 02/19/17 08:00 lab noted Assessment: 02/20/17 10:03 withdrawal sx Plan: continue detox
[2017-02-20] MEDS: PRENATAL VITAMINS W/ FOLIC ACID TABLET (FP) PO SCH (10:19)
[2017-02-20] MEDS: NICOTINE 14 MG/24 HOURS TOPICAL PATCH TD SCH (10:20)
[2017-02-20] MEDS: THIAMINE HCL 100 MG TABLET (FP) PO SCH (23:29)
[2017-02-20] MEDS: chlordiazePOXIDE 5 MG CAPSULE PO SCH (23:29)
[2017-02-21] MEDS: chlordiazePOXIDE 5 MG CAPSULE PO SCH ×3 (05:18→17:53)
--- NOTE | 2017-02-21 09:45 | PN ---
S Progress Note (SOAP) Subjective: ALERT,IRRITABLE,INTERRUPTED SLEEP,TREMOR Objective: 02/21/17 09:44 Vital Signs Temperature 97.3 F L 02/21/17 06:02 Pulse Rate 67 02/21/17 06:02 Respiratory Rate 16 02/21/17 06:02 Blood Pressure 141/78 02/21/17 06:02 O2 Sat by Pulse Oximetry (%) Assessment: 02/21/17 09:44 WITHDRAWAL SYMPTOM Plan: CONTINUE DETOX
[2017-02-21] MEDS: NICOTINE 14 MG/24 HOURS TOPICAL PATCH TD SCH (10:23)
[2017-02-21] MEDS: PRENATAL VITAMINS W/ FOLIC ACID TABLET (FP) PO SCH (10:23)
[2017-02-21] MEDS: THIAMINE HCL 100 MG TABLET (FP) PO SCH (23:05)
[2017-02-21] MEDS: chlordiazePOXIDE HCL 10 MG CAPSULE PO SCH (23:05)
[2017-02-22] MEDS: chlordiazePOXIDE HCL 10 MG CAPSULE PO SCH ×2 (05:49→10:22)
--- NOTE | 2017-02-22 08:19 | DS ---
[facility] Detox Discharge Summary Admission Date: 02/18/17 Discharge Date: 02/22/17 - History Present History: Alcohol Dependence Additional Comments: FOLLOW UP WITH AFTER CARE PROGRAM ARRANGEMENT Pertinent Past History: NICOTINE DEPENDENCE SEIZURE ANXIETY AND DEPRESSION - Physical Exam Results Vital Signs: Vital Signs Temperature 97.1 F L 02/22/17 06:00 Pulse Rate 68 02/22/17 06:00 Respiratory Rate 18 02/22/17 06:00 Blood Pressure 124/79 02/22/17 06:00 O2 Sat by Pulse Oximetry (%) Pertinent Admission Physical Exam Findings: WITHDRAWAL SYMPTOM - Treatment Hospital Course: Detox Protocol Followed, Detoxed Safely, Responded well, Discharged Condition Good, Rehab Referral Accepted Patient has Accepted a Rehab Referral to: [facility] - Medication Discharge Medications: Ambulatory Orders NK [No Known Home Medication] 09/08/16 - Diagnosis (1) Alcohol dependence with uncomplicated withdrawal Current Visit: Yes Status: Chronic (2) Seizure Current Visit: Yes Status: Chronic (3) Nicotine dependence Current Visit: Yes Status: Acute (4) Anxiety and depression Current Visit: No Status: Chronic - AMA Did Patient Leave Against Medical Advice: No
[2017-02-22 09:54] VITALS: BP 122/89; PULSE 82; TEMP 97.3
[2017-02-22] MEDS: PRENATAL VITAMINS W/ FOLIC ACID TABLET (FP) PO SCH (10:21)
[2017-02-22] MEDS: NICOTINE 14 MG/24 HOURS TOPICAL PATCH TD SCH (10:22)
== END 2017-02-22 12:10 | disposition other institution (70) | DRG 775 ==
LOC: YASAS 18:46 → Y6N 21:27
PROVIDERS: ADMIT Internal Medicine; ATTEND Internal Medicine
PROC: HZ2ZZZZ Detoxification Services for Substance Abuse Treatment (ICD-10-PCS; principal; 2017-02-22)
DX: F10.230 Alcohol dependence with withdrawal, uncomplicated (principal); F41.8 Other specified anxiety disorders; F19.24 Other psychoactive substance dependence with psychoactive substance-induced mood disorder; G47.00 Insomnia, unspecified; Z86.69 Personal history of other diseases of the nervous system and sense organs; Z91.5 Personal history of self-harm
CPT/HCPCS: 36415; 80053; 81003; 85027; 86593; 93005; 93010

== ENCOUNTER 2017-02-22 12:39 | Inpatient (IN) | payer OTHER ==
--- NOTE | 2017-02-22 13:04 | HP ---
Psychiatrist Admission - Data Date of interview: 02/22/17 Admission source: [facility] Identifying data: This is the first [facility] admision for this 51 years old single male, unemployed on SSI, homeless Medical History: Significant for history of surgical treatment for cancer of colon in 2012 and orthosurgery for fracture of right arm (1995). Smokes 5 cigarettes daily Psychiatric History: Reports that his first psychiatric contact was in 2013 at [facility] due to depression stemming from his cancer diagnosis. States that he was prescribed Prozac. Reports 2 subsequent psychiatric admissions the same year to 2 different hospitals. He does recall name of any of the admitting hospitals. Reports non-compliant with any follow up care. He last took medication(Prozac) during that last hospitalization. Denies history of previous suicidal attempt. He was seen by Dr Edmonds on 02/19/17 while in detox and he was prescribed Ambien 5 mg po HS. He is very irritable and reports sleeping poorly without medication. He is only willing to take medication for insomnia Physical/Sexual Abuse/Trauma History: Denies history of verbal, physical or sexual abuse as well as DV relationship Additional Comment: Reports history of 3 previous misdemeanor arrests on cherges of disorderly conduct, drinking in public. No probation Allergies/Adverse Reactions: Allergies Allergy/AdvReac Type Severity Reaction Status Date / Time egg Allergy Severe Swelling Verified 02/22/17 12:50 NKDA Allergy Uncoded 02/22/17 12:50 Date of last physical exam: 02/18/17 Concur with the findings of this exam: Yes - Substance Abuse/Tx History Hx Alcohol Use: Yes Hx Substance Use: No Substance Use Type: Alcohol (Started drinking alcohol at age 18, consumes 3 pints of vodka daily. Last drank on 02/18/17) Hx Substance Use Treatment: Yes (2 [facility] inpt detox admission & 3 inpt rehab) Mental Status Exam - Mental Status Exam Alert and Oriented to: Time, Place, Person Cognitive Function: Fair Patient Appearance: Well Groomed Mood: Irritable Affect: Appropriate Patient Behavior: Cooperative (but got upset for asking questions) Speech Pattern: Clear Voice Loudness: Normal, Limited Variation Thought Process: Intact, Goal Oriented Hallucinations: Denies Suicidal Ideation: Denies Homicidal Ideation: Denies Insight/Judgement: Fair Sleep: Poorly Appetite: Good Muscle strength/Tone: Normal Gait/Station: Normal Psychiatric Findings - Problem List ([place] 1, 2,3) (1) Alcohol dependence Current Visit: Yes Status: Acute (2) Nicotine dependence Current Visit: No Status: Acute (3) MDD (major depressive disorder), recurrent episode, moderate Current Visit: Yes Status: Chronic (4) Alcohol-induced mood disorder Current Visit: Yes Status: Acute (5) Alcohol-induced sleep disorder Current Visit: Yes Status: Acute (6) Seizure Current Visit: No Status: Chronic - Initial Treatment Plan Initial Treatment Plan: 1) Start Belsomra 10 mg po HS prn for insomnia. 2) Monitor progress
[2017-02-22 13:08] VITALS: BMI 24.4
--- NOTE | 2017-02-22 14:22 | HP ---
[facility] Re[facility] Assess/Revision - Admission History Admitted to Rehab from: [facility] Date of Admission to Rehab: 02/22/17 - Vital signs Vital Signs: Vital Signs Period Temp Pulse Resp BP Sys/Bonilla Pulse Ox Last 24 Hr 97.2 F 84 18 128/76 - Findings Detox History & Physical reviewed: Yes Concur with findings: Yes Comments/Additional Findings: FOR REHAB PROTOCOL Inpatient Rehab Admission - Initial Determination Are CD services needed?: Yes Free of communicable disease: Yes Not in need of hospitalization: Yes - Rehab Admission Criteria Previous failed treatment: Yes Poor recovery environment: Yes Patient is meeting Inpatient Rehab admission criteria:: Yes
[2017-02-22] MEDS ORDERED: guaiFENesin/D-METHORPHAN HB 10 ML UNIT-DOSE CUPS PO PRN (14:23)
[2017-02-22] MEDS ORDERED: MAGNESIUM HYDROX 2400MG/30ML ORAL SUSPENSION 30 ML CUP PO PRN (14:23)
[2017-02-22] MEDS ORDERED: IBUPROFEN 400 MG TABLET (FP) PO PRN (14:23)
[2017-02-22] MEDS ORDERED: MENTHOL/PHENOL 1 EACH UD MM PRN (14:23)
[2017-02-22] MEDS ORDERED: LOPERAMIDE HCL 2 MG CAPSULE PO PRN (14:23)
[2017-02-22] MEDS ORDERED: P-EPHED 60MG/TRIPROLIDI 2.5MG TABLET PO PRN (14:23)
[2017-02-22] MEDS ORDERED: ACETAMINOPHEN 325 MG TABLET (FP) PO PRN (14:23)
[2017-02-22] MEDS ORDERED: hydrOXYzine PAMOATE 50 MG CAPSULE (FP) PO PRN (14:23)
[2017-02-22] MEDS ORDERED: MAG HYDROX/AL HYDROX/SIMETH 30 ML UNIT-DOSE CUP PO PRN (14:23)
[2017-02-22] MEDS ORDERED: MAGNESIUM CITRATE 300 ML BOTTLE PO PRN (14:23)
[2017-02-22] MEDS: THIAMINE HCL 100 MG TABLET (FP) PO SCH (21:47)
[2017-02-22] MEDS: SUVOREXANT 10 MG TABLET PO PRN (21:49)
[2017-02-23] MEDS: PRENATAL VITAMINS W/ FOLIC ACID TABLET (FP) PO SCH (09:48)
[2017-02-23] MEDS: SUVOREXANT 10 MG TABLET PO PRN (21:20)
[2017-02-23] MEDS: THIAMINE HCL 100 MG TABLET (FP) PO SCH (21:20)
[2017-02-24] MEDS: PRENATAL VITAMINS W/ FOLIC ACID TABLET (FP) PO SCH (09:49)
[2017-02-24] MEDS: THIAMINE HCL 100 MG TABLET (FP) PO SCH (21:35)
[2017-02-24] MEDS: SUVOREXANT 10 MG TABLET PO PRN (22:27)
[2017-02-25] MEDS: PRENATAL VITAMINS W/ FOLIC ACID TABLET (FP) PO SCH (09:43)
[2017-02-25] MEDS: GABAPENTIN 100 MG CAPSULE (FP) PO SCH ×2 (13:37→21:58)
[2017-02-25] MEDS: THIAMINE HCL 100 MG TABLET (FP) PO SCH (21:58)
[2017-02-25] MEDS: SUVOREXANT 10 MG TABLET PO PRN (21:58)
[2017-02-26] MEDS: GABAPENTIN 100 MG CAPSULE (FP) PO SCH ×3 (06:16→21:58)
[2017-02-26] MEDS: PRENATAL VITAMINS W/ FOLIC ACID TABLET (FP) PO SCH (09:43)
[2017-02-26] MEDS: THIAMINE HCL 100 MG TABLET (FP) PO SCH (21:58)
[2017-02-26] MEDS: SUVOREXANT 10 MG TABLET PO PRN (23:00)
[2017-02-27] MEDS: GABAPENTIN 100 MG CAPSULE (FP) PO SCH ×3 (06:05→21:40)
[2017-02-27] MEDS: PRENATAL VITAMINS W/ FOLIC ACID TABLET (FP) PO SCH (09:31)
[2017-02-27] MEDS: THIAMINE HCL 100 MG TABLET (FP) PO SCH (21:40)
[2017-02-27] MEDS: SUVOREXANT 10 MG TABLET PO PRN (21:40)
[2017-02-28] MEDS: GABAPENTIN 100 MG CAPSULE (FP) PO SCH ×2 (06:16→13:26)
[2017-02-28] MEDS: PRENATAL VITAMINS W/ FOLIC ACID TABLET (FP) PO SCH (09:30)
[2017-03-01] MEDS: GABAPENTIN 100 MG CAPSULE (FP) PO SCH ×4 (05:57→22:16)
[2017-03-01] MEDS: PRENATAL VITAMINS W/ FOLIC ACID TABLET (FP) PO SCH (09:38)
[2017-03-01] MEDS: THIAMINE HCL 100 MG TABLET (FP) PO SCH ×2 (16:56→22:16)
[2017-03-02] MEDS: GABAPENTIN 100 MG CAPSULE (FP) PO SCH ×3 (06:02→22:09)
[2017-03-02] MEDS: PRENATAL VITAMINS W/ FOLIC ACID TABLET (FP) PO SCH (09:36)
[2017-03-02] MEDS: THIAMINE HCL 100 MG TABLET (FP) PO SCH (22:09)
[2017-03-03] MEDS: GABAPENTIN 100 MG CAPSULE (FP) PO SCH (05:58)
--- NOTE | 2017-03-03 08:49 | PN ---
[facility] Progress Note (SOAP) Subjective: abdo painin musulature where chemo port was inserted last year. come s and goes, worse when drinking now imporved but evry morning and smometimes at night. 05/24 concerned Objective: 03/03/17 08:46 Vital Signs - 24 hr 03/03/17 03/03/17 03/03/17 00:30 03:29 06:53 Temperature 97.4 F L Pulse Rate 77 Respiratory 20 20 18 Rate Blood Pressure 112/68 labs reveiwed 03/03/17 08:47 abdo soft bs+, cetnral abdo scar, scar left middle abdo quadrant where pain is, area or chemo port insertion, no rebound or gurading. Assessment: 03/03/17 08:48 abdo pain 2/2 to multiple surgeries, tolerable 05/24 no tratment indicated at thsi time, can take advil if bothersome, f/u ca MD afteer discharge. consider neurontin
[2017-03-03] MEDS: PANTOPRAZOLE 40 MG TABLET (FP) PO SCH (09:33)
[2017-03-03] MEDS: PRENATAL VITAMINS W/ FOLIC ACID TABLET (FP) PO SCH (09:33)
[2017-03-03] MEDS: GABAPENTIN 300 MG CAPSULE (FP) PO SCH ×2 (14:21→21:55)
[2017-03-03] MEDS: THIAMINE HCL 100 MG TABLET (FP) PO SCH (21:55)
[2017-03-04] MEDS: GABAPENTIN 300 MG CAPSULE (FP) PO SCH ×3 (05:59→21:56)
[2017-03-04] MEDS: PANTOPRAZOLE 40 MG TABLET (FP) PO SCH (09:41)
[2017-03-04] MEDS: PRENATAL VITAMINS W/ FOLIC ACID TABLET (FP) PO SCH (09:41)
[2017-03-04] MEDS: THIAMINE HCL 100 MG TABLET (FP) PO SCH (21:56)
[2017-03-05] MEDS: GABAPENTIN 300 MG CAPSULE (FP) PO SCH ×3 (05:58→21:46)
[2017-03-05] MEDS: PANTOPRAZOLE 40 MG TABLET (FP) PO SCH (09:37)
[2017-03-05] MEDS: PRENATAL VITAMINS W/ FOLIC ACID TABLET (FP) PO SCH (09:37)
[2017-03-05] MEDS: THIAMINE HCL 100 MG TABLET (FP) PO SCH (21:46)
[2017-03-06] MEDS: GABAPENTIN 300 MG CAPSULE (FP) PO SCH ×3 (06:20→21:53)
[2017-03-06] MEDS: PANTOPRAZOLE 40 MG TABLET (FP) PO SCH (09:31)
[2017-03-06] MEDS: PRENATAL VITAMINS W/ FOLIC ACID TABLET (FP) PO SCH (09:31)
--- NOTE | 2017-03-06 14:07 | PN ---
Psychiatric Progress Note Vital Signs: Vital Signs Period Temp Pulse Resp BP Sys/Bonilla Pulse Ox Last 24 Hr 98.3 F 84 18-18 132/80 Current Medications: Active Medications Generic Name Dose Route Start Last Admin Trade Name Freq PRN Reason Stop Dose Admin Acetaminophen 650 mg 02/22/17 14:23 Tylenol - PO Q4H PRN FEVER OR PAIN Al Hydroxide/Mg Hydroxide 30 ml 02/22/17 14:23 Mylanta Oral Suspension - PO Q6H PRN DYSPEPSIA Eucalyptus/Menthol/Phenol/Sorbitol 1 each 02/22/17 14:23 Cepastat Lozenge - MM Q4H PRN SORE THROAT Gabapentin 300 mg 03/03/17 14:00 03/06/17 06:20 Neurontin - PO 300 mg TID AMBER Administration Guaifenesin 10 ml 02/22/17 14:23 Robitussin Dm - PO Q6H PRN COUGH Hydroxyzine Pamoate 50 mg 02/22/17 14:23 Vistaril - PO Q4H PRN AGITATION Ibuprofen 400 mg 02/22/17 14:23 03/04/17 22:37 Motrin - PO 400 mg Q6H PRN Administration PAIN Loperamide HCl 4 mg 02/22/17 14:23 Imodium - PO Q6H PRN DIARRHEA Magnesium Citrate 300 ml 02/22/17 14:23 Citroma - PO Q48H PRN CONSTIPATION Magnesium Hydroxide 30 ml 02/22/17 14:23 Milk Of Magnesia - PO DAILY PRN CONSTIPATION Pantoprazole Sodium 40 mg 03/03/17 10:00 03/06/17 09:31 Protonix - PO 40 mg DAILY AMBER Administration Multivit/Folic Acid/Iron 1 tab 02/23/17 10:00 03/06/17 09:31 Vitamins (Sjr) - PO 1 tab DAILY AMBER Administration Pseudoephedrine/Triprolidine 1 combo 02/22/17 14:23 Actifed - PO TID PRN NASAL CONGESTION Thiamine HCl 100 mg 02/22/17 22:00 03/05/17 21:46 Vitamin B1 - PO 100 mg HS AMBER Administration Psychiatric Treatment Plan - Problem List (1) Alcohol dependence Current Visit: Yes (2) Nicotine dependence Current Visit: No (3) MDD (major depressive disorder), recurrent episode, moderate Current Visit: Yes (4) Alcohol-induced mood disorder Current Visit: Yes (5) Alcohol-induced sleep disorder Current Visit: Yes (6) Seizure Current Visit: No
[2017-03-06] MEDS: THIAMINE HCL 100 MG TABLET (FP) PO SCH (21:53)
[2017-03-07] MEDS: GABAPENTIN 300 MG CAPSULE (FP) PO SCH ×3 (05:54→21:52)
[2017-03-07] MEDS: PRENATAL VITAMINS W/ FOLIC ACID TABLET (FP) PO SCH (09:24)
[2017-03-07] MEDS: PANTOPRAZOLE 40 MG TABLET (FP) PO SCH (09:25)
[2017-03-07] MEDS: THIAMINE HCL 100 MG TABLET (FP) PO SCH (21:52)
[2017-03-08] MEDS: GABAPENTIN 300 MG CAPSULE (FP) PO SCH ×3 (05:54→21:39)
[2017-03-08] MEDS: PRENATAL VITAMINS W/ FOLIC ACID TABLET (FP) PO SCH (09:31)
[2017-03-08] MEDS: PANTOPRAZOLE 40 MG TABLET (FP) PO SCH (09:31)
[2017-03-08] MEDS: THIAMINE HCL 100 MG TABLET (FP) PO SCH (21:38)
[2017-03-09] MEDS: GABAPENTIN 300 MG CAPSULE (FP) PO SCH ×3 (05:56→21:25)
[2017-03-09] MEDS: PRENATAL VITAMINS W/ FOLIC ACID TABLET (FP) PO SCH (09:47)
[2017-03-09] MEDS: PANTOPRAZOLE 40 MG TABLET (FP) PO SCH (09:47)
[2017-03-09] MEDS: THIAMINE HCL 100 MG TABLET (FP) PO SCH (21:25)
[2017-03-10] MEDS: GABAPENTIN 300 MG CAPSULE (FP) PO SCH ×3 (05:57→21:42)
[2017-03-10] MEDS: PANTOPRAZOLE 40 MG TABLET (FP) PO SCH (09:39)
[2017-03-10] MEDS: PRENATAL VITAMINS W/ FOLIC ACID TABLET (FP) PO SCH (09:39)
[2017-03-10] MEDS: THIAMINE HCL 100 MG TABLET (FP) PO SCH (21:42)
[2017-03-11] MEDS: GABAPENTIN 300 MG CAPSULE (FP) PO SCH ×3 (05:45→21:56)
[2017-03-11] MEDS: PANTOPRAZOLE 40 MG TABLET (FP) PO SCH (09:37)
[2017-03-11] MEDS: PRENATAL VITAMINS W/ FOLIC ACID TABLET (FP) PO SCH (09:37)
[2017-03-11] MEDS: THIAMINE HCL 100 MG TABLET (FP) PO SCH (21:56)
[2017-03-12] MEDS: GABAPENTIN 300 MG CAPSULE (FP) PO SCH ×3 (06:08→22:01)
[2017-03-12] MEDS: PANTOPRAZOLE 40 MG TABLET (FP) PO SCH (09:23)
[2017-03-12] MEDS: PRENATAL VITAMINS W/ FOLIC ACID TABLET (FP) PO SCH (09:23)
[2017-03-12] MEDS: THIAMINE HCL 100 MG TABLET (FP) PO SCH (22:01)
[2017-03-13] MEDS: GABAPENTIN 300 MG CAPSULE (FP) PO SCH ×3 (05:57→21:29)
[2017-03-13] MEDS: PANTOPRAZOLE 40 MG TABLET (FP) PO SCH (09:22)
[2017-03-13] MEDS: PRENATAL VITAMINS W/ FOLIC ACID TABLET (FP) PO SCH (09:22)
[2017-03-13] MEDS: THIAMINE HCL 100 MG TABLET (FP) PO SCH (21:28)
[2017-03-14] MEDS: GABAPENTIN 300 MG CAPSULE (FP) PO SCH ×3 (05:49→21:30)
--- NOTE | 2017-03-14 08:16 | PN ---
Psychiatric Progress Note Vital Signs: Vital Signs Period Temp Pulse Resp BP Sys/Bon[place] Pulse Ox Last 24 Hr 97.8 F 73 18-20 113/79 Date of Session: 03/14/17 Chief Complaint:: Discharge Note HPI: Patient addressing Alcohol Dependence comorbid with Nicotine Dependence, MDD, recurrent episode moderate, Alcohol-induced Mood Disorder and Alcohol- induced Sleep Disorder ROS: Seizure Disorder was medically managed Current Medications: Active Medications Generic Name Dose Route Start Last Admin Trade Name Freq PRN Reason Stop Dose Admin Acetaminophen 650 mg 02/22/17 14:23 Tylenol - PO Q4H PRN FEVER OR PAIN Al Hydroxide/Mg Hydroxide 30 ml 02/22/17 14:23 Mylanta Oral Suspension - PO Q6H PRN DYSPEPSIA Eucalyptus/Menthol/Phenol/Sorbitol 1 each 02/22/17 14:23 Cepastat Lozenge - MM Q4H PRN SORE THROAT Gabapentin 300 mg 03/03/17 14:00 03/14/17 05:49 Neurontin - PO 300 mg TID AMBER Administration Guaifenesin 10 ml 02/22/17 14:23 Robitussin Dm - PO Q6H PRN COUGH Hydroxyzine Pamoate 50 mg 02/22/17 14:23 Vistaril - PO Q4H PRN AGITATION Ibuprofen 400 mg 02/22/17 14:23 03/04/17 22:37 Motrin - PO 400 mg Q6H PRN Administration PAIN Loperamide HCl 4 mg 02/22/17 14:23 Imodium - PO Q6H PRN DIARRHEA Magnesium Citrate 300 ml 02/22/17 14:23 Citroma - PO Q48H PRN CONSTIPATION Magnesium Hydroxide 30 ml 02/22/17 14:23 Milk Of Magnesia - PO DAILY PRN CONSTIPATION Pantoprazole Sodium 40 mg 03/03/17 10:00 03/13/17 09:22 Protonix - PO 40 mg DAILY AMBER Administration Multivit/Folic Acid/Iron 1 tab 02/23/17 10:00 03/13/17 09:22 Vitamins (Sjr) - PO 1 tab DAILY AMBER Administration Pseudoephedrine/Triprolidine 1 combo 02/22/17 14:23 Actifed - PO TID PRN NASAL CONGESTION Thiamine HCl 100 mg 02/22/17 22:00 03/13/17 21:28 Vitamin B1 - PO 100 mg HS AMBER Administration Current Side Effect: No Lab tests ordered: Yes Lab tests reviewed: Yes Provider note:: Patient will complete this program on 03/15/17. He has met his treatment goals and will continue to address his issues in outpatient treatment at [facility]PD. Told policy writer sales that he has learned things from the different groups he has attended in this program. From the nursing group, he has learned to eat healthier to prevent medical issues like stroke. From the counseling group he has learned the importance of making meetings and having a sponsor in order to maintain abstinence. He responded well to Belsomra 10 mg po HS prn for insomnia. He is stable for discharge on 03/15/17 Total face to face time:: 35 Mental Status Exam - Mental Status Exam Alert and Oriented to: Time, Place, Person Cognitive Function: Fair Patient Appearance: Well Groomed Mood: Hopeful, Euthymic Affect: Appropriate Patient Behavior: Cooperative Speech Pattern: Clear Voice Loudness: Normal Thought Process: Intact, Goal Oriented Thought Disorder: Not Present Hallucinations: Denies Suicidal Ideation: Denies Insight/Judgement: Fair Sleep: Fair Appetite: Good Muscle strength/Tone: Normal Gait/Station: Normal Psychiatric Treatment Plan - Problem List (1) Alcohol dependence Current Visit: Yes (2) Nicotine dependence Current Visit: No (3) MDD (major depressive disorder), recurrent episode, moderate Current Visit: Yes (4) Alcohol-induced mood disorder Current Visit: Yes (5) Alcohol-induced sleep disorder Current Visit: Yes (6) Seizure Current Visit: No Initial treatment plan: Patient will be discharged tomorrow and referred to [facility] for outpatient treatment
[2017-03-14] MEDS: PANTOPRAZOLE 40 MG TABLET (FP) PO SCH (09:42)
[2017-03-14] MEDS: PRENATAL VITAMINS W/ FOLIC ACID TABLET (FP) PO SCH (09:42)
[2017-03-14] MEDS: THIAMINE HCL 100 MG TABLET (FP) PO SCH (21:30)
[2017-03-15] MEDS: GABAPENTIN 300 MG CAPSULE (FP) PO SCH (05:57)
[2017-03-15 06:43] VITALS: BP 115/71; PULSE 72; TEMP 98.6
== END 2017-03-15 07:05 | disposition home or self-care (01) | DRG 861 ==
LOC: YASAS 12:39 → Y3W 12:40
PROVIDERS: ADMIT Psychiatry & Neurology Psychiatry; ATTEND Psychiatry & Neurology Psychiatry
PROC: HZ42ZZZ Group Counseling for Substance Abuse Treatment, Cognitive-Behavioral (ICD-10-PCS; principal; 2017-02-22)
DX: F17.210 Nicotine dependence, cigarettes, uncomplicated (principal); F33.9 Major depressive disorder, recurrent, unspecified; F10.24 Alcohol dependence with alcohol-induced mood disorder; F10.282 Alcohol dependence with alcohol-induced sleep disorder; G40.909 Epilepsy, unspecified, not intractable, without status epilepticus

== ENCOUNTER 2023-12-01 20:36 | Inpatient (IN) | payer OTHER ==
[2023-12-01 21:51] VITALS: BMI 27.4
[2023-12-01] MEDS ORDERED: BENZONATATE 200 MG CAPSULE PO PRN (22:10)
[2023-12-01] MEDS ORDERED: DICYCLOMINE HCL 10 MG CAPSULE PO PRN (22:10)
[2023-12-01] MEDS ORDERED: POLYETHYLENE GLYCOL (HEALTHYLAX) 3350 17 GM PACKET PO PRN (22:10)
[2023-12-01] MEDS ORDERED: IBUPROFEN 400 MG TABLET (FP) PO PRN (22:10)
[2023-12-01] MEDS ORDERED: LOPERAMIDE HCL 2 MG CAPSULE PO PRN (22:10)
[2023-12-01] MEDS ORDERED: ONDANSETRON *ODT* 4 MG TABLET SL PRN (22:10)
[2023-12-01] MEDS ORDERED: ACETAMINOPHEN 325 MG TABLET (FP) PO PRN (22:10)
[2023-12-01] MEDS ORDERED: BENZOCAINE/MENTHOL (CHLORASEPTIC ) LOZENGE MM PRN (22:10)
[2023-12-01] MEDS ORDERED: guaiFENesin 600 MG TABLET.ER (FP) PO PRN (22:10)
[2023-12-01] MEDS ORDERED: MAGNESIUM HYDROX 2400MG/30ML ORAL SUSPENSION 30 ML CUP PO PRN (22:10)
[2023-12-01] MEDS ORDERED: BISMUTH SUBSALICYLATE 524 MG/30 ML PO PRN (22:10)
[2023-12-01] MEDS ORDERED: IBUPROFEN 600 MG TABLET (FP) PO PRN (22:10)
[2023-12-02] MEDS ORDERED: PRENATAL VITAMINS W/ FOLIC ACID TABLET (FP) PO ONE (10:35)
[2023-12-02] MEDS: PRENATAL VITAMINS W/ FOLIC ACID TABLET (FP) PO SCH (10:55)
[2023-12-02] MEDS: THIAMINE 100 MG TABLET PO SCH (22:06)
[2023-12-02] MEDS: METHOCARBAMOL 500 MG TABLET PO PRN (22:06)
[2023-12-02] MEDS: hydrOXYzine PAMOATE 25 MG CAPSULE (FP) PO PRN (22:06)
[2023-12-02] MEDS: MELATONIN 5 MG TABLETS PO SCH (22:06)
[2023-12-03] MEDS ORDERED: diazePAM 5 MG TABLET PO PRN (10:46)
[2023-12-03] MEDS: diazePAM 5 MG TABLET PO SCH (11:31)
[2023-12-04] MEDS: MAG HYDROX/AL HYDROX/SIMETH 30 ML UNIT-DOSE CUP PO PRN (15:02)
[2023-12-04] MEDS: MELATONIN 5 MG TABLETS PO SCH (22:13)
[2023-12-05] MEDS: diazePAM 5 MG TABLET PO SCH (05:58)
[2023-12-06] MEDS: diazePAM 5 MG TABLET PO SCH (05:58)
[2023-12-07] MEDS: diazePAM 5 MG TABLET PO ONE (05:55)
[2023-12-07 06:20] VITALS: BP 114/72; PULSE 81; RESP 17; TEMP 97.9
== END 2023-12-07 09:13 | disposition other institution (70) | DRG 775 ==
LOC: YASAS 20:36 → Y3N 12-02 14:26
PROVIDERS: ADMIT Allergy & Immunology; ATTEND Surgery
PROC: HZ2ZZZZ Detoxification Services for Substance Abuse Treatment (ICD-10-PCS; principal; 2023-12-02)
DX: F10.230 Alcohol dependence with withdrawal, uncomplicated (principal); F10.282 Alcohol dependence with alcohol-induced sleep disorder; Z87.891 Personal history of nicotine dependence; Z85.038 Personal history of other malignant neoplasm of large intestine; Z56.0 Unemployment, unspecified; Z59.00 Homelessness unspecified
CPT/HCPCS: 36415; 80305; 80307; 86780; 93005; 93010